=== PATIENT | male | born 1960 | race Caucasian/White ===

== ENCOUNTER 2017-07-27 03:53 | Emergency (ER) | payer SELFPAY ==
[~2017-07-27] VITALS: Ht 190.5 cm; Wt 93.0 kg
[2017-07-27 03:55] VITALS: BP 132/87; PULSE 66; RESP 15; TEMP 97.7; O2SAT 98
--- NOTE | 2017-07-27 04:16 | PD ---
HPI Chief Complaint: Flank/Kidney Pain Time Seen by Provider: 04:15 Travel History International Travel<30 days: No Contact w/Intl Traveler<30days: No Traveled to known affect area: No History of Present Illness HPI The patient is a 56 year old male who presents to the [facility] emergency department with a history of left flank pain that he reports awoken from sound sleep at 12:30 AM. He denies having any radiation of pain into his abdomen or down into his testicle or groin. The patient reports that yesterday he did notice that his urine looked darker than usual and then on arrival to the emergency department it appeared to be slightly red. The patient denies having any dysuria, urinary frequency, or urinary urgency. He denies having any prior history of kidney stones. The patient reports that the pain is sharp in character. He reports that it is mainly been constant with a brief period of respite. The patient reports that he did try drinking tea and using a heating pad with some relief earlier this evening. He reports that he has had nausea and vomiting 4 related to the pain. He denies having any diarrhea. His last bowel movement was earlier today. He denies having any penile discharge, scrotal pain or swelling. He denies having any muscle pain. A review of systems, the patient denies having any recent fevers, cough, congestion, neck pain, chest pain, shortness of breath, abdominal pain, diarrhea,or neurologic symptoms. [facility] Past Medical History Narrative Medical The patient's past medical history is significant for none Immunizations Current: Yes Tetanus Vaccination: Unknown Influenza Vaccination: No Past Surgical History Narrative Surgical The patient's past surgical history is significant for appendectomy, inguinal hernia repair, arthroscopy right knee, left knee surgery. Social History Alcohol Use: Yes (occasionally) Tobacco Use: No Substance Use: No Allergies-Medications (Allergen,Severity, Reaction): Coded Allergies: No Known Allergies (Unverified , 07/27/17) Reported Meds & Prescriptions Reported Meds & Active Scripts Active No Active Prescriptions or Reported Medications Review of Systems Except as stated in HPI: all other systems reviewed are Neg General / Constitutional: No: Fever Eyes: No: Visual changes HENT: No: Headaches Cardiovascular: No: Chest Pain or Discomfort Respiratory: No: Shortness of Breath Gastrointestinal: Positive: Nausea, Vomiting, No: Diarrhea, Abdominal Pain, Changes in Bowel Habits, Indigestion, Loss of Appetite Genitourinary: Positive: Hematuria, Flank Pain (left flank), No: Dysuria Musculoskeletal: No: Pain Skin: No Rash Neurologic: No: Weakness, Focal Abnormalities, Change in Mentation, Sensory Disturbance Psychiatric: No: Depression Endocrine: No: Polydipsia Hematologic/Lymphatic: No: Easy Bruising Physical Exam Narrative General: The patient is a well-developed well-nourished male, uncomfortable appearing on arrival, holding his left side. Head and Neck exam: Head is normocephalic atraumatic. Eyes: EOMI, pupils are equal round and reactive to light. Nose: Midline septum with pink mucous membranes Mouth: Dentition unremarkable. Moist mucus membranes. Posterior oropharynx is not erythematous. No tonsillar hypertrophy. Uvula midline. Airway patent. Neck: No palpable lymphadenopathy. No nuchal rigidity. No thyromegaly. Cardiovascular: Regular rate and rhythm without murmurs, gallops, or rubs. Lungs: Clear to auscultation bilaterally. No wheezes, rhonchi, or rales. Abdomen: Soft, without tenderness to palpation in all 4 quadrants of the abdomen. No guarding, rebound, or rigidity. Normal bowel sounds are audible. No tenderness on palpation of McBurney's point. Negative Escalante sign. Extremities: No clubbing, cyanosis, or edema. 2+ pulses in all 4 extremities. No calf tenderness on palpation. Back: No spinous process tenderness to palpation. Left-sided CVA tenderness on palpation. Neurologic Exam: Grossly nonfocal. Skin Exam: No rash noted. Intact skin that is warm and dry. Data Data Last Documented VS Vital Signs Date Time Temp Pulse Resp B/P (MAP) Pulse Ox O2 Delivery O2 Flow Rate FiO2 07/27/17 05:43 16 07/27/17 04:21 07/27/17 03:55 97.7 66 98 Room Air Orders Orders Complete Blood Count With Diff (07/27/17 04:19) Comprehensive Metabolic Panel (07/27/17 04:19) Lipase (07/27/17 04:19) Urinalysis - C+S If Indicated (07/27/17 04:19) Ct Abd/Pel W/O Iv Contrast (07/27/17 04:19) Iv Access Insert/Monitor (07/27/17 04:19) Ecg Monitoring (07/27/17 04:19) Oximetry (07/27/17 04:19) Sodium Chlor 0.9% 1000 Ml Inj (Ns 1000 M (07/27/17 04:30) Ondansetron Inj (Zofran Inj) (07/27/17 04:30) Ketorolac Inj (Toradol Inj) (07/27/17 04:30) Labs Laboratory Tests Test 07/27/17 04:30 White Blood Count 12.3 TH/MM3 Red Blood Count 5.21 MIL/MM3 Hemoglobin 15.4 GM/DL Hematocrit 45.9 % Mean Corpuscular Volume 88.0 FL Mean Corpuscular Hemoglobin 29.6 PG Mean Corpuscular Hemoglobin Concent 33.6 % Red Cell Distribution Width 13.8 % Platelet Count 386 TH/MM3 Mean Platelet Volume 6.8 FL Neutrophils (%) (Auto) 78.3 % Lymphocytes (%) (Auto) 13.8 % Monocytes (%) (Auto) 5.9 % Eosinophils (%) (Auto) 1.6 % Basophils (%) (Auto) 0.4 % Neutrophils # (Auto) 9.7 TH/MM3 Lymphocytes # (Auto) 1.7 TH/MM3 Monocytes # (Auto) 0.7 TH/MM3 Eosinophils # (Auto) 0.2 TH/MM3 Basophils # (Auto) 0.1 TH/MM3 CBC Comment DIFF FINAL Differential Comment Urine Color LIGHT-RED Urine Turbidity HAZY Urine pH 5.5 Urine Specific [place] 1.026 Urine Protein 30 mg/dL Urine Glucose (UA) NEG mg/dL Urine Ketones NEG mg/dL Urine Occult Blood LARGE Urine Nitrite NEG Urine Bilirubin NEG Urine Urobilinogen LESS THAN 2.0 MG/DL Urine Leukocyte Esterase NEG Urine RBC /hpf Urine WBC 1 /hpf Urine Squamous Epithelial Cells <1 /hpf Urine Calcium Oxalate Crystals RARE /hpf Urine Bacteria RARE /hpf Urine Mucus FEW /lpf Microscopic Urinalysis Comment CULT NOT INDICATED Blood Urea Nitrogen 14 MG/DL Creatinine 1.24 MG/DL Random Glucose 123 MG/DL Total Protein 7.6 GM/DL Albumin 3.8 GM/DL Calcium Level 8.7 MG/DL Alkaline Phosphatase 76 U/L Aspartate Amino Transf (AST/SGOT) 14 U/L Alanine Aminotransferase (ALT/SGPT) 23 U/L Total Bilirubin 0.5 MG/DL Sodium Level 141 MEQ/L Potassium Level 3.7 MEQ/L Chloride Level 106 MEQ/L Carbon Dioxide Level 28.4 MEQ/L Anion Gap 7 MEQ/L Estimat Glomerular Filtration Rate 60 ML/MIN Lipase 150 U/L MDM Medical Decision Making Medical Screen Exam Complete: Yes Emergency Medical Condition: Yes Medical Record Reviewed: Yes Interpretation(s) Last Impressions Abdomen/Pelvis CT 07/27/17 0419 Signed Impressions: Service Date/Time: Thursday, July 27, 2017 05:14 - CONCLUSION: 1. 6 mm x 4 mm calculus in the proximal left ureter with mild left hydronephrosis and obstructive uropathy. Additional small nonobstructing calculi lower pole left kidney. 2. Postoperative previous right inguinal hernia repair. Mild constipation. Kash Damon MD Differential Diagnosis Ureterolithiasis, versus hemorrhagic cystitis, versus rhabdomyolysis, versus musculoskeletal strain, versus dehydration Narrative Course During the course of the patients emergency department visit, the patients history, examination, and differential diagnosis were reviewed with the patient. The patient had IV access obtained and blood work sent for analysis. The patient states on a pharmacy assistant with oximetry and blood pressure monitoring. A CT scan of the abdomen and pelvis without IV contrast was ordered to evaluate for suspected kidney stone. The patient was initially provided normal saline 1 L IV fluid bolus, Toradol 15 mg IV, Zofran 4 mg IV. On reexamination, the patient reports that the pain has resolved. The patient is resting comfortably. The patients laboratory studies were reviewed and remarkable for white count of 12.3, hemoglobin 15.4, platelets 386 with 78.3 neutrophils. CMP is remarkable for a glucose of 123, AST 14, lipase 150, urinalysis shows 30 protein, large occult blood, innumerable rbc's, 1 wbc, rare calcium oxalate crystals, culture not indicated. Radiology studies were reviewed and remarkable for a CT scan of the abdomen and pelvis that shows a 6 mm x 4 mm calculus in the proximal left ureter with mild left hydronephrosis and obstructive uropathy. Additional small nonobstructing calculi lower pole of the left kidney. Postoperative changes from previous right little hernia, mild constipation. The patient has had pain improvement with Toradol administration. The patient was instructed that the kidney stone is large enough that it may require lithotripsy for treatment. The patient is given the name of the urologist on- call, for follow-up. The patient will be given his office address and phone number to make an appointment in the morning for follow-up. The patient will be discharged home with a prescription for Lortab, ibuprofen, and Flomax. The patient is instructed regarding the importance of staying well-hydrated. The patient is resting comfortably and feels better, is alert and in no distress. The patients results and examination findings were discussed with the patient. The repeat examination is unremarkable and benign. The history, exam, diagnostic testing, and current condition do not suggest any significant pathology to warrant further testing, continued ED treatment, admission, or surgical evaluation at this point. The vital signs have been stable. The patient does not have uncontrollable pain, intractable vomiting, or other significant symptoms. The patient's condition is stable and appropriate for discharge. The patient will pursue further outpatient evaluation with a primary care physician or other designated or consulting physician as indicated in the discharge instructions. The patient expressed understanding and was agreeable with this plan. Diagnosis Primary Impression: Ureterolithiasis Referrals: Andrew Evans MD 2 days Patient Instructions: General Instructions, Kidney Stones (ED) Med/Other Pt SpecificInfo: Prescription(s) given Scripts Tamsulosin (Flomax) 0.4 Mg Cap 0.4 MG PO HS for Manage Prostate Problems, #14 CAP 0 Refills Prov: Kristine Edward MD 07/27/17 Ibuprofen (Ibuprofen) 600 Mg Tab 600 MG PO Q8H Y for PAIN, #12 TAB 0 Refills Prov: Kristine Edward MD 07/27/17 Hydrocodone-Acetaminophen (Lortab) 5-325 Mg Tab 1 TAB PO Q4-6H Y for PAIN, #16 TAB 0 Refills Prov: Kristine Edward MD 07/27/17 Disposition: 01 DISCHARGE HOME Condition: Stable Kristine Edward MD Jul 27, 2017 04:16
[2017-07-27 04:21] VITALS: RESP 18
[2017-07-27] MEDS ORDERED: KETOROLAC TROMETHAMINE 30 MG/ML (IVP) VIAL IV PUSH ONE (04:30)
[2017-07-27] MEDS ORDERED: SODIUM CHLOR 0.9% 1000 ML INJ 1,000 ML IV ONE (04:30)
[2017-07-27] MEDS ORDERED: ONDANSETRON HCL 4 MG/2 ML VIAL IV ONE (04:30)
[2017-07-27 04:37] LABS: AUTOMATED NEUTROPHIL # 9.7 TH/MM3 (1.8-7.7); BASOPHIL # 0.1 TH/MM3 (0-0.2); BASOPHIL % 0.4 % (0.0-2.0); EOSINOPHIL # 0.2 TH/MM3 (0-0.4); EOSINOPHIL % 1.6 % (0.0-4.0); HEMATOCRIT 45.9 % (39.0-51.0); HEMO FLAGS DIFF FINAL; LYMPH % 13.8 % (9.0-44.0); LYMPHOCYTE # 1.7 TH/MM3 (1.0-4.8); MEAN CORPUSCULAR HEMOGLOBIN 29.6 PG (27.0-34.0); MEAN CORPUSCULAR HGB CONC 33.6 % (32.0-36.0); MONO % 5.9 % (0.0-8.0); NEUT % 78.3 % (16.0-70.0); PLATELET COUNT 386 TH/MM3 (150-450); RED BLOOD COUNT 5.21 MIL/MM3 (4.50-5.90); RED CELL DISTRIBUTION WIDTH 13.8 % (11.6-17.2); WHITE BLOOD COUNT 12.3 TH/MM3 (4.0-11.0)
[2017-07-27 04:45] LABS: BACTERIA, URINE RARE /hpf; BLOOD, URINE LARGE (NEG); CALCIUM OXALATE CRYSTALS,URINE RARE /hpf; COMMENT (UR) CULT NOT INDICATED; CULTURE IF INDICATED CULT NOT INDICATED; GLUCOSE,URINE NEG (NEG); KETONE, URINE NEG (NEG); MUCUS URINE FEW /lpf (OCC); NITRITE,URINE NEG (NEG); PH, URINE 5.5 (5.0-8.5); SQUAMOUS EPITHELIAL CELL URINE <1 /hpf (0-5); URINE COLOR LIGHT-RED (YELLW/STRAW)
[2017-07-27 04:50] LABS: ALT (GPT) 23 U/L (12-78); ANION GAP 7 MEQ/L (5-15); AST (GOT) 14 U/L (15-37); BICARBONATE 28.4 MEQ/L (21.0-32.0); BLOOD UREA NITROGEN 14 MG/DL (7-18); CHLORIDE 106 MEQ/L (98-107); GLOMERULAR FILTRATION RATE 60 ML/MIN (>89); POTASSIUM 3.7 MEQ/L (3.5-5.1); SODIUM (NA) 141 MEQ/L (136-145)
[2017-07-27 04:53] LABS: ALKALINE PHOSPHATASE 76 U/L (45-117); TOTAL BILIRUBIN ADULT 0.5 MG/DL (0.2-1.0)
--- NOTE | 2017-07-27 05:38 | RADRPT ---
EXAM DATE/TIME: 07/27/2017 05:14 [place] COMPARISON: No previous studies available for comparison. INDICATIONS : Left flank pain. ORAL CONTRAST: No oral contrast ingested. RADIATION DOSE: 8.47 CTDIvol (mGy) MEDICAL HISTORY : None SURGICAL HISTORY : None. ENCOUNTER: Initial ACUITY: 1 day PAIN SCALE: 7/10 LOCATION: Left flank TECHNIQUE: Volumetric scanning of the abdomen and pelvis was performed. Using automated exposure control and ad justment of the mA and/or kV according to patient size, radiation dose was kept as low as reasonably achievable to obtain optimal diagnostic quality images. DICOM format image data is available electro nically for review and comparison. FINDINGS: Minimal basilar atelectasis. There is a left-sided obstructive uropathy secondary to an approximately 6 mm x 4 mm calculus in the proximal left ureter. Additional nonobstructing calculi in the lower pole left kidney measure about 1 mm and 3 mm in diameter. No right-sided renal or ureteral calculi. No acute findings in the liver, spleen, adrenals or pancreas. No gallstones or biliary ductal dilatat ion. There is moderate constipation. No free fluid. No bowel obstruction. No acute bony abnormality. CONCLUSION: 1. 6 mm x 4 mm calculus in the proximal left ureter with mild left hydronephrosis and obstructive uro shawna. Additional small nonobstructing calculi lower pole left kidney. 2. Postoperative previous right inguinal hernia repair. Mild constipation. Kash Damon MD on July 27, 2017 at 5:29 Board Certified Radiologist. This report was verified electronically.
[2017-07-27 05:43] VITALS: RESP 16
[2017-07-27] MEDS ORDERED: HYDR-3533 PO (06:00)
[2017-07-27] MEDS ORDERED: IBUP-232 PO (06:00)
[2017-07-27] MEDS ORDERED: TAMS5CAP PO (06:00)
== END 2017-07-27 06:11 | disposition home or self-care (01) ==
LOC: NEPE 03:53
DX: N13.2 Hydronephrosis with renal and ureteral calculous obstruction (principal); R31.9 Hematuria, unspecified; R11.2 Nausea with vomiting, unspecified; K59.00 Constipation, unspecified
CPT/HCPCS: 74176; 80053; 81001; 83690; 85025; 96361; 96374; 96375; 99285; J1885; J2405; J7030